=== PATIENT | female | born 1940 | race Asian ===

== ENCOUNTER 2020-06-27 08:20 | Day surgery (SDC) | payer BC ==
[~2020-06-27] VITALS: Ht 152.4 cm; Wt 111.0 kg
[~2020-06-27 08:20] MED LIST: ALLO100 PO; Hair, Skin & N1 EACH PO; LEVO-T75 MCG PO; METF500 PO; SIMV10 PO; SITA25T2 PO
[2020-06-27] MEDS ORDERED: OMEP20ER ×2 (09:07→09:08)
[2020-06-27] MEDS ORDERED: TELM40 PO (09:08)
--- NOTE | 2020-06-27 09:13 | NUR ---
06/27/20 0913 Marito Hicks CALL LIGHT WITHIN REACH. FAMILY AT BEDSIDE
== END 2020-06-27 10:20 | disposition home or self-care (01) ==
LOC: ORSCSDS 08:20
PROVIDERS: Ophthalmology
PROC: 08RK3JZ Replacement of Left Lens with Synthetic Substitute, Percutaneous Approach (ICD-10-PCS; principal; 2020-06-27 09:30)
DX: H25.12 Age-related nuclear cataract, left eye (principal); I10 Essential (primary) hypertension; E78.5 Hyperlipidemia, unspecified; E11.9 Type 2 diabetes mellitus without complications; E03.9 Hypothyroidism, unspecified; N18.3 Chronic kidney disease, stage 3 (moderate); Z79.84 Long term (current) use of oral hypoglycemic drugs; Z79.899 Other long term (current) drug therapy
CPT/HCPCS: 82947; J2001; J2250; J3010; J3301; J7040; J7120; V2632